=== PATIENT | female | born 1970 | race African-American/Black ===

== ENCOUNTER 2016-10-20 18:20 | Emergency (ER) | payer MEDICAID ==
[2016-06-08 12:05] VITALS: BMI 24.6
[~2016-10-20 18:20] MED LIST: AMBIEN10 MG PO; ATIVAN2 MG PO; CARAFATE1 G PO; HCTZ25 MG PO; HYDROCODONE-APA1 TAB PO; LISINOPRIL10 MG PO; LOPRESSOR; PEPCID40 MG PO; PERCOCET 10/3251 TA1 PO; PHENERGAN25 M1 PO
[2016-10-20 19:45] LABS: BASOPHILS 0.2 % (0.0-2.0); EOSINOPHILS 0 % (0-7); HEMATOCRIT 39.7 % (36.0-48.0); HEMOGLOBIN 12.8 g/dL (12-16); IMMATURE GRANULOCYTES 0.2 % (0-5); LYMPHOCYTES 20.2 % (15-50); MCH 28.7 pg (26.0-34.0); MCHC 32.2 g/dL (31.0-37.0); MEAN PLATELET VOLUME 9.7 fL (7.4-10.4); MONOCYTES 1.7 % (2-11); NEUTROPHILS 77.7 % (40-80); PLATELET COUNT 269 10x3/uL (130-400); RBC 4.46 10x6/uL (4.00-5.40); WBC 12.2 10x3/uL (4.8-10.8)
[2016-10-20 20:01] LABS: APPEARANCE HAZY (CLEAR); COLOR YELLOW (YELLOW)
[2016-10-20 20:02] LABS: ALBUMIN 4.6 g/dL (3.4-5.0); ANION GAP 19.7 mmol/L (8-16); BILIRUBIN - TOTAL 0.95 mg/dL (0.2-1.3); CARBON DIOXIDE 21.7 mmol/L (21.0-32.0); CREATININE - SERUM 0.9 mg/dL (0.6-1.3); POTASSIUM - SERUM 4.4 mmol/L (3.5-5.1); PROTEIN - SERUM 8.2 g/dL (6.4-8.2)
[2016-10-20 20:02] LABS: BILIRUBIN NEGATIVE (NEGATIVE); GLUCOSE NEGATIVE (NEGATIVE); KETONE LARGE mg/dL (NEGATIVE); LEUKOCYTE ESTERASE NEGATIVE (NEGATIVE); NITRITE NEGATIVE (NEGATIVE); PROTEIN NEGATIVE (NEGATIVE); UROBILINOGEN NORMAL (NORMAL)
== END 2016-10-21 00:40 | disposition home or self-care (01) ==
LOC: D.ER 18:20
PROVIDERS: Family Medicine
DX: R10.9 Unspecified abdominal pain (principal); F41.9 Anxiety disorder, unspecified; K74.60 Unspecified cirrhosis of liver; K21.9 Gastro-esophageal reflux disease without esophagitis; I10 Essential (primary) hypertension

== ENCOUNTER 2016-11-21 21:12 | Emergency (ER) | payer MEDICAID ==
[2016-06-08 12:05] VITALS: BMI 24.6
== END 2016-11-21 22:50 | disposition home or self-care (01) ==
LOC: D.ER 21:12
DX: F41.9 Anxiety disorder, unspecified (principal); F43.20 Adjustment disorder, unspecified; M54.5 Low back pain; M54.30 Sciatica, unspecified side; F17.200 Nicotine dependence, unspecified, uncomplicated; K74.60 Unspecified cirrhosis of liver; K21.9 Gastro-esophageal reflux disease without esophagitis; I10 Essential (primary) hypertension

== ENCOUNTER 2016-11-30 05:43 | Day surgery (SDC) | payer MEDICAID ==
[2016-11-28 12:59] LABS: BASOPHILS 0.4 % (0-2); EOSINOPHILS 1.5 % (0-7); HEMATOCRIT 41.5 % (36.0-48.0); HEMOGLOBIN 13.1 g/dL (12-16); IMMATURE GRANULOCYTES 0.2 % (0-5); LYMPHOCYTES 38.4 % (15-50); MCH 28.5 pg (26.0-34.0); MCHC 31.6 g/dL (31.0-37.0); MCV 90.2 fL (80.0-100.0); MEAN PLATELET VOLUME 9.6 fL (7.4-10.4); MONOCYTES 2.9 % (2-11); NEUTROPHILS 56.6 % (40-80); PLATELET COUNT 304 10x3/uL (130-400); RDW 17.8 % (11.5-14.5); WBC 8.5 10x3/uL (4.8-10.8)
[2016-11-28 13:29] LABS: CALC OSMOLALITY 280 mosm/kg (275-300); CALCIUM 9.3 mg/dL (8.5-10.1); CARBON DIOXIDE 30.3 mmol/L (21.0-32.0); CHLORIDE - SERUM 104 mmol/L (98-107); CREATININE - SERUM 0.8 mg/dL (0.6-1.3); GLUCOSE 105 mg/dL (74-106); POTASSIUM - SERUM 3.9 mmol/L (3.5-5.1); SODIUM 142 mmol/L (136-145); UREA NITROGEN 7 mg/dL (7-18); eGFR NON AFRICAN AMERICAN 82 mL/min (90-120)
[~2016-11-30] VITALS: Ht 162.6 cm; Wt 64.9 kg
--- NOTE | ~2016-11-30 | OP ---
PATIENT NAME: ERICA VARMA MEDICAL RECORD: [id number] :70 LOCATION:D.OPS ADMISSION DATE: SURGEON: ADY HOPKINS MD DATE OF OPERATION: 11/30/2016 PREOPERATIVE DIAGNOSES: 1. Persistent low-grade cervical dysplasia. 2. Cervical stenosis POSTOPERATIVE DIAGNOSES: 1. Persistent low-grade cervical dysplasia. 2. Cervical stenosis. PROCEDURE: Loop electrosurgical excision procedure. SURGEON: Ady Hopkins MD ESTIMATED BLOOD LOSS: Minimal. INTRAVENOUS FLUIDS: Per anesthesia record. FINDINGS: 1. Grossly normal appearing cervical stump. 2. Stenotic cervical os. SPECIMENS: Cervical cone biopsy times 2. PROCEDURE IN DETAIL: The patient was taken to the operating room where general anesthesia was achieved without difficulty. The patient was then prepped and draped in normal sterile fashion in the dorsal lithotomy position. SCDs were on and functioning normally. Following prep of the vagina, the bladder was drained of approximately 100 cc of clear urine. At this point, an insulated speculum was placed into the vagina and the cervical stump was identified and then a square loop electrode was used to excise approximately to adapted 8 mm and a cervical cone biopsy was performed in 2 pieces. Good hemostasis was noted and the cervical crater was then fulgurated using the Bovie cautery. The speculum was then removed following a placement of Monsel solution on the cervical stump. The patient tolerated the procedure well, transferred to postanesthesia recovery stable without incident. TRANSINT:[id number] Voice Confirmation ID: [id number] DOCUMENT ID: [id number] ADY HOPKINS MD CC: [id number] DICTATION DATE: 11/30/16 1109 ARCHIVIST: 11/30/162010 [facility] 11/30/16 [facility] [address] [place] [address]
[2016-11-30 06:03] VITALS: BP 137/94; Ht 162.6 cm; Wt 64.9 kg
--- NOTE | 2016-11-30 09:00 | NUR ---
PATIENT REPORTS THAT SHE TAKES PERCOCET MULTIPLE TIMES A DAY AND SUFFERS FROM CHRONIC PAIN.
== END 2016-11-30 09:55 | disposition home or self-care (01) ==
LOC: D.OPS 05:43 → D.PAN 07:30 → D.OPS 09:55
PROVIDERS: Anesthesiology; Obstetrics & Gynecology
DX: N87.9 Dysplasia of cervix uteri, unspecified (principal); F17.200 Nicotine dependence, unspecified, uncomplicated; I10 Essential (primary) hypertension; N88.2 Stricture and stenosis of cervix uteri; Z01.812 Encounter for preprocedural laboratory examination

== ENCOUNTER 2016-12-05 19:53 | Emergency (ER) | payer MEDICAID ==
[2016-11-30 06:03] VITALS: BMI 24.6
[2016-12-05 20:30] LABS: BASOPHILS 0.3 % (0-2); EOSINOPHILS 1.7 % (0-7); HEMATOCRIT 42.3 % (36.0-48.0); HEMOGLOBIN 13.5 g/dL (12-16); IMMATURE GRANULOCYTES 0.2 % (0-5); LYMPHOCYTES 49.9 % (15-50); MCH 28.5 pg (26.0-34.0); MCHC 31.9 g/dL (31.0-37.0); MCV 89.2 fL (80.0-100.0); MONOCYTES 3.7 % (2-11); NEUTROPHILS 44.2 % (40-80); PLATELET COUNT 275 10x3/uL (130-400); RBC 4.74 10x6/uL (4.00-5.40); RDW 18.7 % (11.5-14.5); WBC 10.2 10x3/uL (4.8-10.8)
[2016-12-05 20:55] LABS: ALBUMIN 3.6 g/dL (3.4-5.0); ALKALINE PHOSPHATASE 99 U/L (46-116); ALT (SGPT) 34 U/L (10-68); BILIRUBIN - TOTAL 0.14 mg/dL (0.2-1.3); CALC OSMOLALITY 290 mosm/kg (275-300); CALCIUM 9.2 mg/dL (8.5-10.1); CARBON DIOXIDE 24.8 mmol/L (21.0-32.0); CHLORIDE - SERUM 110 mmol/L (98-107); CREATININE - SERUM 0.7 mg/dL (0.6-1.3); GLUCOSE 109 mg/dL (74-106); POTASSIUM - SERUM 3.9 mmol/L (3.5-5.1); PROTEIN - SERUM 7.2 g/dL (6.4-8.2); SODIUM 147 mmol/L (136-145); UREA NITROGEN 8 mg/dL (7-18); eGFR NON AFRICAN AMERICAN > 90 mL/min (90-120)
[2016-12-05 20:56] LABS: HCG SERUM NEGATIVE (NEGATIVE)
[2016-12-05 21:39] LABS: APPEARANCE CLEAR (CLEAR); COLOR YELLOW (YELLOW)
[2016-12-05 21:40] LABS: BILIRUBIN NEGATIVE (NEGATIVE); GLUCOSE NEGATIVE (NEGATIVE); KETONE NEGATIVE (NEGATIVE); LEUKOCYTE ESTERASE TRACE (NEGATIVE); NITRITE NEGATIVE (NEGATIVE); PROTEIN NEGATIVE (NEGATIVE); UROBILINOGEN NORMAL (NORMAL)
[2016-12-05 21:43] LABS: EPITHELIAL CELLS 0-5 /hpf (0-5); RED CELLS - URINE OCC /hpf (0-5)
[2016-12-05 21:44] LABS: BACTERIA FEW /hpf (NONE SEEN)
== END 2016-12-05 23:39 | disposition home or self-care (01) ==
LOC: D.ER 19:53
PROVIDERS: Emergency Medicine; Physician Assistant
DX: G89.18 Other acute postprocedural pain (principal); N93.8 Other specified abnormal uterine and vaginal bleeding; I95.9 Hypotension, unspecified; F17.200 Nicotine dependence, unspecified, uncomplicated; F41.9 Anxiety disorder, unspecified; K74.60 Unspecified cirrhosis of liver; K21.9 Gastro-esophageal reflux disease without esophagitis; I10 Essential (primary) hypertension

== ENCOUNTER 2016-12-14 17:28 | Emergency (ER) | payer MEDICAID ==
[2016-11-30 06:03] VITALS: BMI 24.6
[2016-12-14 19:29] LABS: APPEARANCE CLEAR (CLEAR); BILIRUBIN NEGATIVE (NEGATIVE); COLOR STRAW (YELLOW); GLUCOSE NEGATIVE (NEGATIVE); KETONE NEGATIVE (NEGATIVE); LEUKOCYTE ESTERASE NEGATIVE (NEGATIVE); NITRITE NEGATIVE (NEGATIVE); PROTEIN NEGATIVE (NEGATIVE); UROBILINOGEN NORMAL (NORMAL)
[2016-12-14 19:30] LABS: UDS - AMPHET NEGATIVE QUAL (NEGATIVE); UDS - BARB NEGATIVE QUAL (NEGATIVE); UDS - BENZO NEGATIVE QUAL (NEGATIVE); UDS - COCAINE NEGATIVE QUAL (NEGATIVE); UDS - METH NEGATIVE QUAL (NEGATIVE); UDS - OPIATE NEGATIVE QUAL (NEGATIVE); UDS - PCP NEGATIVE QUAL (NEGATIVE); UDS - THC NEGATIVE QUAL (NEGATIVE)
[2016-12-14 19:46] LABS: BASOPHILS 0.7 % (0-2); EOSINOPHILS 1.2 % (0-7); HEMATOCRIT 41.8 % (36.0-48.0); HEMOGLOBIN 13.2 g/dL (12-16); IMMATURE GRANULOCYTES 0.5 % (0-5); LYMPHOCYTES 46.4 % (15-50); MCH 28.3 pg (26.0-34.0); MCHC 31.6 g/dL (31.0-37.0); MCV 89.7 fL (80.0-100.0); MEAN PLATELET VOLUME 9.8 fL (7.4-10.4); MONOCYTES 3.9 % (2-11); NEUTROPHILS 47.3 % (40-80); PLATELET COUNT 324 10x3/uL (130-400); RBC 4.66 10x6/uL (4.00-5.40); RDW 18.9 % (11.5-14.5); WBC 12.1 10x3/uL (4.8-10.8)
[2016-12-14 20:10] LABS: ALBUMIN 3.6 g/dL (3.4-5.0); ALKALINE PHOSPHATASE 91 U/L (46-116); ALT (SGPT) 20 U/L (10-68); AMYLASE - SERUM 17 U/L (25-115); BILIRUBIN - TOTAL 0.13 mg/dL (0.2-1.3); CALC OSMOLALITY 291 mosm/kg (275-300); CALCIUM 8.7 mg/dL (8.5-10.1); CARBON DIOXIDE 28.8 mmol/L (21.0-32.0); CHLORIDE - SERUM 111 mmol/L (98-107); CKMB 0.4 U/L (0.0-3.6); CREATINE KINASE 96 UL (21-215); CREATININE - SERUM 0.8 mg/dL (0.6-1.3); GLUCOSE 90 mg/dL (74-106); LIPASE 100 U/L (73-393); MAGNESIUM - SERUM 2.1 mg/dL (1.8-2.4); POTASSIUM - SERUM 3.9 mmol/L (3.5-5.1); PROTEIN - SERUM 7.4 g/dL (6.4-8.2); SODIUM 147 mmol/L (136-145); UREA NITROGEN 12 mg/dL (7-18); eGFR NON AFRICAN AMERICAN 82 mL/min (90-120)
[2016-12-14 20:11] LABS: TROPONIN-I < 0.017 ng/mL (0.000-0.060)
== END 2016-12-15 00:30 | disposition home or self-care (01) ==
LOC: D.ER 17:28
PROVIDERS: Emergency Medicine; Nurse Practitioner Family
DX: F10.129 Alcohol abuse with intoxication, unspecified (principal); F41.9 Anxiety disorder, unspecified; R07.9 Chest pain, unspecified; R11.0 Nausea

== ENCOUNTER 2016-12-24 15:36 | Emergency (ER) | payer MEDICAID ==
[2016-11-30 06:03] VITALS: BMI 24.6
[2016-12-24 16:48] LABS: HEMATOCRIT 41.5 % (36.0-48.0); HEMOGLOBIN 13.4 g/dL (12-16); MCHC 32.3 g/dL (31.0-37.0); MCV 86.6 fL (80.0-100.0); MEAN PLATELET VOLUME 9.8 fL (7.4-10.4); PLATELET COUNT 290 10x3/uL (130-400); RBC 4.79 10x6/uL (4.00-5.40)
[2016-12-24 17:17] LABS: BASOPHILS 1 % (0-2); EOSINOPHILS 3 % (0-7); LYMPHOCYTES 59 % (15-50); MONOCYTES 1 % (2-11); NEUTROPHILS 36 % (40-80); PLATELET ESTIMATE NORMAL; TARGET CELLS OCC
[2016-12-24 17:26] LABS: ALBUMIN 3.9 g/dL (3.4-5.0); ALKALINE PHOSPHATASE 84 U/L (46-116); ALT (SGPT) 19 U/L (10-68); AMYLASE - SERUM 29 U/L (25-115); BILIRUBIN - TOTAL 0.11 mg/dL (0.2-1.3); CALC OSMOLALITY 292 mosm/kg (275-300); CALCIUM 8.8 mg/dL (8.5-10.1); CHLORIDE - SERUM 111 mmol/L (98-107); CREATININE - SERUM 0.6 mg/dL (0.6-1.3); GLUCOSE 91 mg/dL (74-106); LIPASE 183 U/L (73-393); POTASSIUM - SERUM 3.9 mmol/L (3.5-5.1); PROTEIN - SERUM 7.5 g/dL (6.4-8.2); SODIUM 147 mmol/L (136-145); UREA NITROGEN 15 mg/dL (7-18); eGFR NON AFRICAN AMERICAN > 90 mL/min (90-120)
== END 2016-12-24 19:23 | disposition home or self-care (01) ==
LOC: D.ER 15:36
PROVIDERS: Emergency Medicine; Nurse Practitioner Family
DX: K29.00 Acute gastritis without bleeding (principal); F41.9 Anxiety disorder, unspecified; K21.9 Gastro-esophageal reflux disease without esophagitis; I10 Essential (primary) hypertension; F17.200 Nicotine dependence, unspecified, uncomplicated

== ENCOUNTER 2017-03-02 09:59 | Emergency (ER) | payer MEDICAID ==
[2016-11-30 06:03] VITALS: BMI 24.6
[2017-03-02 10:54] LABS: BASOPHILS 0.5 % (0-2); EOSINOPHILS 0.9 % (0-7); HEMATOCRIT 40.8 % (36.0-48.0); HEMOGLOBIN 13.2 g/dL (12-16); IMMATURE GRANULOCYTES 0.2 % (0-5); LYMPHOCYTES 57.3 % (15-50); MCH 28.9 pg (26.0-34.0); MCHC 32.4 g/dL (31.0-37.0); MCV 89.3 fL (80.0-100.0); MEAN PLATELET VOLUME 10.1 fL (7.4-10.4); MONOCYTES 3.8 % (2-11); NEUTROPHILS 37.3 % (40-80); PLATELET COUNT 318 10x3/uL (130-400); RBC 4.57 10x6/uL (4.00-5.40); RDW 20.3 % (11.5-14.5); WBC 8.7 10x3/uL (4.8-10.8)
[2017-03-02 11:19] LABS: ALBUMIN 3.8 g/dL (3.4-5.0); ALKALINE PHOSPHATASE 78 U/L (46-116); ALT (SGPT) 26 U/L (10-68); CALC OSMOLALITY 291 mosm/kg (275-300); CALCIUM 8.7 mg/dL (8.5-10.1); CHLORIDE - SERUM 109 mmol/L (98-107); CREATININE - SERUM 0.6 mg/dL (0.6-1.3); GLUCOSE 98 mg/dL (74-106); POTASSIUM - SERUM 3.7 mmol/L (3.5-5.1); PROTEIN - SERUM 7.3 g/dL (6.4-8.2); SODIUM 147 mmol/L (136-145); UREA NITROGEN 13 mg/dL (7-18); eGFR NON AFRICAN AMERICAN > 90 mL/min (90-120)
[2017-03-02 11:44] LABS: APPEARANCE HAZY (CLEAR); BILIRUBIN NEGATIVE (NEGATIVE); COLOR YELLOW (YELLOW); GLUCOSE NEGATIVE (NEGATIVE); KETONE NEGATIVE (NEGATIVE); LEUKOCYTE ESTERASE NEGATIVE (NEGATIVE); NITRITE NEGATIVE (NEGATIVE); PROTEIN NEGATIVE (NEGATIVE); UROBILINOGEN NORMAL (NORMAL)
[2017-03-02 11:59] LABS: UDS - AMPHET NEGATIVE QUAL (NEGATIVE); UDS - BARB NEGATIVE QUAL (NEGATIVE); UDS - BENZO NEGATIVE QUAL (NEGATIVE); UDS - COCAINE NEGATIVE QUAL (NEGATIVE); UDS - METH NEGATIVE QUAL (NEGATIVE); UDS - OPIATE NEGATIVE QUAL (NEGATIVE); UDS - PCP NEGATIVE QUAL (NEGATIVE); UDS - THC NEGATIVE QUAL (NEGATIVE)
== END 2017-03-02 12:53 | disposition home or self-care (01) ==
LOC: D.ER 09:59
PROVIDERS: Nurse Practitioner Family
DX: F10.129 Alcohol abuse with intoxication, unspecified (principal); W06.XXXA Fall from bed, initial encounter; Y93.89 Activity, other specified; Y92.89 Other specified places as the place of occurrence of the external cause; K74.60 Unspecified cirrhosis of liver; F41.9 Anxiety disorder, unspecified; K21.9 Gastro-esophageal reflux disease without esophagitis; I10 Essential (primary) hypertension; F17.200 Nicotine dependence, unspecified, uncomplicated

== ENCOUNTER 2017-04-25 18:12 | Emergency (ER) | payer MEDICAID ==
[2016-11-30 06:03] VITALS: BMI 24.6
== END 2017-04-25 21:44 | disposition home or self-care (01) ==
LOC: D.ER 18:12
DX: F10.129 Alcohol abuse with intoxication, unspecified (principal); F10.10 Alcohol abuse, uncomplicated; F17.200 Nicotine dependence, unspecified, uncomplicated

== ENCOUNTER 2017-04-30 16:04 | Emergency (ER) | payer MEDICAID ==
[2016-11-30 06:03] VITALS: BMI 24.6
[2017-04-30 16:43] LABS: BASOPHILS 0.2 % (0-2); EOSINOPHILS 0.1 % (0-7); HEMATOCRIT 46.7 % (36.0-48.0); HEMOGLOBIN 15.4 g/dL (12-16); IMMATURE GRANULOCYTES 0.4 % (0-5); LYMPHOCYTES 28.4 % (15-50); MCH 29.8 pg (26.0-34.0); MCV 90.5 fL (80.0-100.0); NEUTROPHILS 68.9 % (40-80); PLATELET COUNT 312 10x3/uL (130-400); RBC 5.16 10x6/uL (4.00-5.40); WBC 16.8 10x3/uL (4.8-10.8)
[2017-04-30 17:07] LABS: ALBUMIN 4.3 g/dL (3.4-5.0); ANION GAP 27.8 mmol/L (8-16); BILIRUBIN - TOTAL 0.3 mg/dL (0.2-1.3); CALCIUM 8.8 mg/dL (8.5-10.1); CARBON DIOXIDE 13.8 mmol/L (21.0-32.0); CREATININE - SERUM 0.9 mg/dL (0.6-1.3); POTASSIUM - SERUM 3.6 mmol/L (3.5-5.1); PROTEIN - SERUM 7.8 g/dL (6.4-8.2)
[2017-04-30 17:36] LABS: APPEARANCE CLEAR (CLEAR); BILIRUBIN NEGATIVE (NEGATIVE); COLOR YELLOW (YELLOW); GLUCOSE NEGATIVE (NEGATIVE); KETONE MODERATE mg/dL (NEGATIVE); NITRITE NEGATIVE (NEGATIVE); PROTEIN TRACE mg/dL (NEGATIVE); UROBILINOGEN NORMAL (NORMAL)
== END 2017-04-30 20:32 | disposition home or self-care (01) ==
LOC: D.ER 16:04
PROVIDERS: Emergency Medicine
DX: K29.20 Alcoholic gastritis without bleeding (principal); I10 Essential (primary) hypertension; K21.9 Gastro-esophageal reflux disease without esophagitis; F17.200 Nicotine dependence, unspecified, uncomplicated

== ENCOUNTER 2017-07-15 04:10 | Emergency (ER) | payer MEDICAID ==
[2016-11-30 06:03] VITALS: BMI 24.6
[2017-07-15 05:27] LABS: BASOPHILS 0.5 % (0-2); EOSINOPHILS 0.6 % (0-7); HEMATOCRIT 38.9 % (36.0-48.0); HEMOGLOBIN 12.9 g/dL (12-16); IMMATURE GRANULOCYTES 0.3 % (0-5); LYMPHOCYTES 37.8 % (15-50); MCH 29.9 pg (26.0-34.0); MCHC 33.2 g/dL (31.0-37.0); MEAN PLATELET VOLUME 9.9 fL (7.4-10.4); MONOCYTES 4.1 % (2-11); NEUTROPHILS 56.7 % (40-80); PLATELET COUNT 322 10x3/uL (130-400); RBC 4.32 10x6/uL (4.00-5.40); RDW 17.9 % (11.5-14.5); WBC 12.6 10x3/uL (4.8-10.8)
[2017-07-15 05:40] LABS: ALBUMIN 3.7 g/dL (3.4-5.0); ALKALINE PHOSPHATASE 84 U/L (46-116); ALT (SGPT) 28 U/L (10-68); AMYLASE - SERUM 17 U/L (25-115); BILIRUBIN - TOTAL 0.32 mg/dL (0.2-1.3); CALCIUM 7.9 mg/dL (8.5-10.1); CHLORIDE - SERUM 100 mmol/L (98-107); CREATININE - SERUM 0.6 mg/dL (0.6-1.3); LIPASE 149 U/L (73-393); POTASSIUM - SERUM 3.9 mmol/L (3.5-5.1); PROTEIN - SERUM 7.5 g/dL (6.4-8.2); SODIUM 136 mmol/L (136-145); UREA NITROGEN 21 mg/dL (7-18); eGFR NON AFRICAN AMERICAN > 90 mL/min (90-120)
[2017-07-15 05:42] LABS: CALC OSMOLALITY 276 mosm/kg (275-300); GLUCOSE 142 mg/dL (74-106)
[2017-07-15 06:45] LABS: APPEARANCE CLEAR (CLEAR); BILIRUBIN NEGATIVE (NEGATIVE); COLOR YELLOW (YELLOW); GLUCOSE NEGATIVE (NEGATIVE); KETONE MODERATE mg/dL (NEGATIVE); NITRITE NEGATIVE (NEGATIVE); PROTEIN NEGATIVE (NEGATIVE); SPECIFIC GRAVITY 1.015 (1.005-1.020); UROBILINOGEN NORMAL (NORMAL)
== END 2017-07-15 08:10 | disposition home or self-care (01) ==
LOC: D.ER 04:10
PROVIDERS: Family Medicine
DX: K29.70 Gastritis, unspecified, without bleeding (principal); K92.2 Gastrointestinal hemorrhage, unspecified; F10.10 Alcohol abuse, uncomplicated; J20.9 Acute bronchitis, unspecified; I10 Essential (primary) hypertension; K21.9 Gastro-esophageal reflux disease without esophagitis

== ENCOUNTER 2017-08-27 09:32 | Day surgery (SDC) | payer MEDICAID ==
[~2017-08-27] VITALS: Ht 162.6 cm; Wt 63.6 kg
--- NOTE | ~2017-08-27 | OP ---
PATIENT NAME: ERICA VARMA MEDICAL RECORD: [id number] :70 LOCATION:[facility] ADMISSION DATE: SURGEON: GEOVANY YAN DO DATE OF OPERATION: 08/27/2017 PROCEDURE: EGD with biopsies. INDICATIONS FOR PROCEDURE: Dysphagia, heartburn, nausea, epigastric abdominal pain. SCOPE: Olympus video gastroscope. MEDICATIONS: Propofol 270 mg IV per anesthesia. ESTIMATED BLOOD LOSS: Minimal. COMPLICATIONS: None. FINDINGS: Informed consent was given. The patient was made comfortable with the above medication. After reaching an adequate level of sedation by slow IV push, the patient was placed on her left side. The endoscope was advanced under direct visualization through the mouth to the second portion of the duodenum. The upper, middle, and lower thirds of the esophagus appeared normal. At the GE junction, there was evidence of LA class A reflux induced esophagitis without ulcerations. There were no strictures or rings encountered within the esophagus itself. A single cold forceps biopsy was taken from the site of the esophagitis. The endoscope was advanced into the stomach and retroflexed to view the cardia and fundus. From the retroflexed position, there was small sliding hiatal hernia visualized. Throughout the entire stomach, there was some erythema and granularity as well as congestion consistent with gastritis. Random biopsies were taken to submit for histopathology and to rule out H pylori. In the antrum and prepyloric region, there were few superficial ulcerations present. The endoscope was advanced beyond the pylorus into the duodenum where inflammation consisting of congestion, erythema, and granularity of the duodenal bulb was present. There were no ulcerations visualized here. The endoscope was advanced beyond the bulb and first portion of the duodenum into the second portion, which appeared normal. The endoscope was then withdrawn from the patient. The patient tolerated the procedure well and there were no complications. IMPRESSION: 1. LA class A reflux-induced esophagitis. 2. Small sliding hiatal hernia. 3. Diffuse gastritis, biopsies pending. 4. Multiple superficial antral and prepyloric gastric ulcers. 5. Duodenitis involving the duodenal bulb. PLAN AND RECOMMENDATIONS: 1. Discharge home when recovery parameters are met. 2. GERD diet and reflux precautions. 3. Start Protonix 40 mg daily times 60 days. 4. Follow up biopsy specimen results and treat if indicated for H pylori. 5. At the completion of the course of Protonix, resume Pepcid or Zantac for antacid therapy. 6. Notify the clinic if symptoms failed to improve with the Protonix. OPERATIVE REPORT [id number] ERICA VARMA TRANSINT:[id number] Voice Confirmation ID: [id number] DOCUMENT ID: [id number] GEOVANY YAN DO CC: [id number] DICTATION DATE: 08/27/17 1128 AIR CONDITIONING TECHNICIAN: 08/27/17 1311 [facility] 08/27/[address] [address]
[2017-08-27 10:12] LABS: BASOPHILS 0.5 % (0-2); EOSINOPHILS 0.9 % (0-7); HEMATOCRIT 39.6 % (36.0-48.0); HEMOGLOBIN 12.4 g/dL (12-16); IMMATURE GRANULOCYTES 0.2 % (0-5); LYMPHOCYTES 39.2 % (15-50); MCH 28.4 pg (26.0-34.0); MCHC 31.3 g/dL (31.0-37.0); MCV 90.8 fL (80.0-100.0); MEAN PLATELET VOLUME 10.1 fL (7.4-10.4); MONOCYTES 4.9 % (2-11); NEUTROPHILS 54.3 % (40-80); PLATELET COUNT 330 10x3/uL (130-400); RBC 4.36 10x6/uL (4.00-5.40); RDW 18.8 % (11.5-14.5); WBC 12.2 10x3/uL (4.8-10.8)
[2017-08-27 10:23] VITALS: BP 112/77; Ht 162.6 cm; Wt 63.6 kg
== END 2017-08-27 12:25 | disposition home or self-care (01) ==
LOC: D.OPS 09:32
PROVIDERS: Anesthesiology
DX: K21.0 Gastro-esophageal reflux disease with esophagitis (principal); K44.9 Diaphragmatic hernia without obstruction or gangrene; K29.70 Gastritis, unspecified, without bleeding; K25.9 Gastric ulcer, unspecified as acute or chronic, without hemorrhage or perforation; K29.80 Duodenitis without bleeding; Z01.812 Encounter for preprocedural laboratory examination

== ENCOUNTER 2017-09-13 19:55 | Emergency (ER) | payer MEDICAID ==
[2017-08-27 10:23] VITALS: BMI 24.0
[2017-09-13 20:33] LABS: UDS - AMPHET NEGATIVE QUAL (NEGATIVE); UDS - BENZO NEGATIVE QUAL (NEGATIVE); UDS - COCAINE NEGATIVE QUAL (NEGATIVE); UDS - PCP NEGATIVE QUAL (NEGATIVE); UDS - THC NEGATIVE QUAL (NEGATIVE)
[2017-09-13 20:34] LABS: UDS - BARB NEGATIVE QUAL (NEGATIVE); UDS - OPIATE NEGATIVE QUAL (NEGATIVE)
[2017-09-13 20:52] LABS: HEMATOCRIT 43.1 % (36.0-48.0); HEMOGLOBIN 14.1 g/dL (12-16); MCH 28.5 pg (26.0-34.0); MCHC 32.7 g/dL (31.0-37.0); MCV 87.1 fL (80.0-100.0); MEAN PLATELET VOLUME 9.9 fL (7.4-10.4); PLATELET COUNT 333 10x3/uL (130-400); RBC 4.95 10x6/uL (4.00-5.40); WBC 16.4 10x3/uL (4.8-10.8)
[2017-09-13 21:18] LABS: ALBUMIN 4.3 g/dL (3.4-5.0); BILIRUBIN - TOTAL 0.2 mg/dL (0.2-1.3); CALCIUM 8.4 mg/dL (8.5-10.1); CARBON DIOXIDE 22.8 mmol/L (21.0-32.0); CREATININE - SERUM 0.9 mg/dL (0.6-1.3); POTASSIUM - SERUM 3.8 mmol/L (3.5-5.1); PROTEIN - SERUM 8.3 g/dL (6.4-8.2)
[2017-09-13 21:34] LABS: APPEARANCE CLEAR (CLEAR); BILIRUBIN NEGATIVE (NEGATIVE); COLOR STRAW (YELLOW); GLUCOSE NEGATIVE (NEGATIVE); KETONE NEGATIVE (NEGATIVE); NITRITE NEGATIVE (NEGATIVE); PROTEIN NEGATIVE (NEGATIVE); UROBILINOGEN NORMAL (NORMAL)
[2017-09-13 21:40] LABS: LYMPHOCYTES 53 % (15-50); NEUTROPHILS 47 % (40-80)
[2017-09-13 21:41] LABS: ELLIPTOCYTES OCC; PLATELET ESTIMATE NORMAL; ROULEAUX OCC
[2017-09-13 21:42] LABS: TARGET CELLS OCC
[2017-09-14 04:36] LABS: BASOPHILS 0.4 % (0-2); EOSINOPHILS 0.5 % (0-7); HEMATOCRIT 39.5 % (36.0-48.0); HEMOGLOBIN 12.3 g/dL (12-16); IMMATURE GRANULOCYTES 0.2 % (0-5); LYMPHOCYTES 55.5 % (15-50); MCH 27.7 pg (26.0-34.0); MCHC 31.1 g/dL (31.0-37.0); MEAN PLATELET VOLUME 10.1 fL (7.4-10.4); MONOCYTES 2.6 % (2-11); NEUTROPHILS 40.8 % (40-80); PLATELET COUNT 280 10x3/uL (130-400); RBC 4.44 10x6/uL (4.00-5.40); RDW 18.8 % (11.5-14.5); WBC 13.3 10x3/uL (4.8-10.8)
== END 2017-09-14 05:32 | disposition home or self-care (01) ==
LOC: D.ER 19:55
PROVIDERS: Emergency Medicine
DX: Z86.59 Personal history of other mental and behavioral disorders (principal); F17.200 Nicotine dependence, unspecified, uncomplicated; F12.90 Cannabis use, unspecified, uncomplicated; F11.90 Opioid use, unspecified, uncomplicated; I10 Essential (primary) hypertension; K21.9 Gastro-esophageal reflux disease without esophagitis

== ENCOUNTER 2017-10-15 19:10 | Emergency (ER) | payer MEDICAID ==
[2017-08-27 10:23] VITALS: BMI 24.0
== END 2017-10-15 21:09 | disposition home or self-care (01) ==
LOC: D.ER 19:10
DX: M54.6 Pain in thoracic spine (principal); S29.012A Strain of muscle and tendon of back wall of thorax, initial encounter; X58.XXXA Exposure to other specified factors, initial encounter; Y93.89 Activity, other specified; Y92.89 Other specified places as the place of occurrence of the external cause; I10 Essential (primary) hypertension

== ENCOUNTER 2018-04-14 13:06 | Emergency (ER) | payer MEDICAID ==
[~2018-04-14] VITALS: Ht 162.6 cm; Wt 61.4 kg
[2018-04-14 13:13] VITALS: Ht 162.6 cm; Wt 61.4 kg
[2018-04-14] MEDS ORDERED: CREON DR 6,0001 EACH PO (13:15)
[2018-04-14] MEDS ORDERED: PROVENTIL/2.5 MG/3 M (13:16)
[2018-04-14] MEDS ORDERED: AZOR 10-20 MG T1 TAB PO (13:16)
[2018-04-14 16:17] VITALS: BP 140/89
== END 2018-04-14 16:18 | disposition home or self-care (01) ==
LOC: D.ER 13:06
DX: M79.671 Pain in right foot (principal); R51 Headache; R07.81 Pleurodynia; Y04.2XXA Assault by strike against or bumped into by another person, initial encounter; Y93.89 Activity, other specified; Y92.019 Unspecified place in single-family (private) house as the place of occurrence of the external cause; I10 Essential (primary) hypertension; F17.200 Nicotine dependence, unspecified, uncomplicated

== ENCOUNTER 2018-04-19 20:49 | Emergency (ER) | payer MEDICAID ==
[~2018-04-19] VITALS: Ht 162.6 cm; Wt 81.8 kg
[~2018-04-19 20:49] MED LIST changes: +AZOR 10-20 MG T1 TAB PO; +CREON DR 6,0001 EACH PO; +PROVENTIL/2.5 MG/3 M
[2018-04-19 20:53] VITALS: Ht 162.6 cm; Wt 81.8 kg
[2018-04-19 21:30] LABS: HEMATOCRIT 40.5 % (36.0-48.0); HEMOGLOBIN 13.5 g/dL (12-16); MCH 28.7 pg (26.0-34.0); MCHC 33.3 g/dL (31.0-37.0); MCV 86.2 fL (80.0-100.0); MEAN PLATELET VOLUME 9.7 fL (7.4-10.4); PLATELET COUNT 281 10x3/uL (130-400); RDW 18.8 % (11.5-14.5); WBC 13.9 10x3/uL (4.8-10.8)
[2018-04-19 21:47] LABS: APTT 26.7 SECONDS (22.8-39.4); INR 0.95 (0.85-1.17); PROTIME 12.3 SECONDS (11.6-15.0)
[2018-04-19 22:03] LABS: ALKALINE PHOSPHATASE 73 U/L (46-116); ALT (SGPT) 19 U/L (10-68); BILIRUBIN - TOTAL 0.18 mg/dL (0.2-1.3); CALC OSMOLALITY 279 mosm/kg (275-300); CALCIUM 9.2 mg/dL (8.5-10.1); CARBON DIOXIDE 25.1 mmol/L (21.0-32.0); CHLORIDE - SERUM 104 mmol/L (98-107); CKMB 0.2 U/L (0.0-3.6); CREATINE KINASE 77 UL (21-215); CREATININE - SERUM 0.7 mg/dL (0.6-1.3); GLUCOSE 114 mg/dL (74-106); PRO BNP 13 pg/mL (0-125); PROTEIN - SERUM 7.9 g/dL (6.4-8.2); SODIUM 140 mmol/L (136-145); UREA NITROGEN 12 mg/dL (7-18); eGFR NON AFRICAN AMERICAN > 90 mL/min (90-120)
[2018-04-19 22:11] LABS: POTASSIUM - SERUM 2.8 mmol/L (3.5-5.1); TROPONIN-I < 0.017 ng/mL (0.000-0.060)
[2018-04-19 22:13] LABS: ELLIPTOCYTES OCC; EOSINOPHILS 1 % (0-7); LYMPHOCYTES 53 % (15-50); MONOCYTES 1 % (2-11); NEUTROPHILS 45 % (40-80); PLATELET ESTIMATE NORMAL; TARGET CELLS OCC
[2018-04-19] MEDS ORDERED: VIBRAMYCIN 100100 MG PO (22:41)
[2018-04-19] MEDS ORDERED: VENTOLIN HFA18 GM INH (22:41)
[2018-04-19 23:02] VITALS: BP 128/48
== END 2018-04-19 23:02 | disposition home or self-care (01) ==
LOC: D.ER 20:49
PROVIDERS: Family Medicine
DX: J42 Unspecified chronic bronchitis (principal); R05 Cough; E87.6 Hypokalemia; K86.1 Other chronic pancreatitis; I10 Essential (primary) hypertension; F17.200 Nicotine dependence, unspecified, uncomplicated

== ENCOUNTER → 2018-05-16 10:12 | Outpatient (CLI) | payer MEDICAID ==
[2018-04-19 20:53] VITALS: BMI 30.9
--- NOTE | ~2018-05-16 | ST ---
PATIENT:ERICA VARMA [facility] MEDICAL RECORD: [id number] SEX: F LOCATION:[facility] ORDER #: ADMISSION DATE: 05/16/18 AGE OF PATIENT: 48 REFERRING PHYSICIAN: INTERPRETING PHYSICIAN: YOHAN DANIELLE MD DATE OF SERVICE: 05/16/2018 PROCEDURE: Nuclear stress test. INDICATION: Chest pain of unknown etiology. PROCEDURE: The patient was exercised on standard Lexiscan protocol with 30.5 mCi of sestamibi injected at peak stress. Rest images were done previously with 12.8 mCi. FINDINGS: Gated SPECT reveals a preserved ejection fraction at greater than 70% with good wall motion and thickening and brightening throughout all segments. SPECT imaging: Sestamibi was used as a myocardial perfusion agent. There is homogeneous uptake throughout all segments at rest and stress with no evidence of inducible ischemia or previous infarction. OVERALL IMPRESSION: 1. This is a normal nuclear stress test with no evidence of inducible ischemia or previous infarction. 2. Gated SPECT reveals preserved ejection fraction greater than 70%. In this patient with ongoing symptomatology, the current scan does not suggest the presence of hemodynamically significant coronary artery disease. We would evaluate noncardiac etiology of chest pain. TRANSINT:[id number] Voice Confirmation ID: [id number] DOCUMENT ID: [id number] YOHAN DANIELLE MD at 1903 CC: [id number] DICTATION DATE: 05/17/18 1138 MEDICAL CLAIMS MANAGER: 05/17/18 2307 DEP CLI 05/16/18 [address] [place] [address]
[~2018-05-16 10:12] MED LIST changes: +VENTOLIN HFA18 GM INH; +VIBRAMYCIN 100100 MG PO
== END | disposition home or self-care (01) ==
LOC: D.NM 10:12
DX: I20.9 Angina pectoris, unspecified (principal); R06.00 Dyspnea, unspecified

== ENCOUNTER → 2018-07-02 12:31 | Outpatient (CLI) | payer MEDICAID ==
[2018-04-19 20:53] VITALS: BMI 30.9
== END | disposition home or self-care (01) ==
LOC: D.CT 06-27 11:30
DX: G89.29 Other chronic pain (principal)

== ENCOUNTER 2018-07-22 08:00 | Outpatient (CLI) | payer MEDICAID ==
[2018-04-19 20:53] VITALS: BMI 30.9
== END 2018-07-22 09:00 | disposition home or self-care (01) ==
LOC: D.MAMMO 08:00
DX: Z12.31 Encounter for screening mammogram for malignant neoplasm of breast (principal)

== ENCOUNTER 2018-10-21 12:00 | Outpatient (CLI) | payer MEDICAID ==
[2018-04-19 20:53] VITALS: BMI 30.9
== END 2018-10-21 13:00 | disposition home or self-care (01) ==
LOC: D.MAMMO 12:00
PROVIDERS: ATTEND Emergency Medicine
DX: R92.8 Other abnormal and inconclusive findings on diagnostic imaging of breast (principal)

== ENCOUNTER → 2019-09-25 12:10 | Outpatient (CLI) | payer OTHER ==
[2018-04-19 20:53] VITALS: BMI 30.9
== END | disposition home or self-care (01) ==
LOC: D.CT 12:10
PROVIDERS: ATTEND Internal Medicine Gastroenterology
DX: N28.89 Other specified disorders of kidney and ureter (principal); R93.89 Abnormal findings on diagnostic imaging of other specified body structures

== ENCOUNTER 2019-11-29 20:36 | Emergency (ER) | payer OTHER ==
[~2019-11-29] VITALS: Ht 162.6 cm; Wt 59.1 kg
[2019-11-29 20:48] VITALS: Ht 162.6 cm; Wt 59.1 kg
[2019-11-29 21:06] LABS: HEMATOCRIT 44.8 % (36.0-48.0); HEMOGLOBIN 14.3 g/dL (12-16); LYMPHOCYTES 37.4 % (15-50); MCH 28.3 pg (26.0-34.0); MCHC 31.9 g/dL (31.0-37.0); MCV 88.5 fL (80.0-100.0); MEAN PLATELET VOLUME 9.5 fL (7.4-10.4); NEUTROPHILS 59.6 % (40-80); PLATELET COUNT 335 10x3/uL (130-400); RBC 5.06 10x6/uL (4.00-5.40); RDW 16.7 % (11.5-14.5); WBC 13.6 10x3/uL (4.8-10.8)
[2019-11-29 21:21] LABS: CALC OSMOLALITY 274 mosm/kg (275-300); CALCIUM 8.9 mg/dL (8.5-10.1); CARBON DIOXIDE 19.4 mmol/L (21.0-32.0); CHLORIDE - SERUM 97 mmol/L (98-107); CREATININE - SERUM 0.9 mg/dL (0.6-1.3); GLUCOSE 79 mg/dL (74-106); POTASSIUM - SERUM 3.6 mmol/L (3.5-5.1); SODIUM 136 mmol/L (136-145); UREA NITROGEN 24 mg/dL (7-18); eGFR NON AFRICAN AMERICAN 70 mL/min (90-120)
[2019-11-29 21:32] LABS: ALBUMIN 4.4 g/dL (3.4-5.0); ALKALINE PHOSPHATASE 89 U/L (30-120); ALT (SGPT) 23 U/L (10-68); AMYLASE - SERUM 17 U/L (25-115); BILIRUBIN - TOTAL 0.55 mg/dL (0.2-1.3); LIPASE 81 U/L (73-393); PROTEIN - SERUM 8.5 g/dL (6.4-8.2)
[2019-11-29 21:35] LABS: TROPONIN-I < 0.017 ng/mL (0.000-0.060)
[2019-11-29] MEDS ORDERED: ZOFRAN8 MG PO (22:36)
[2019-11-29] MEDS ORDERED: FLAGYL500 MG PO (22:36)
[2019-11-29] MEDS ORDERED: CIPRO500 MG PO (22:36)
[2019-11-29 22:40] LABS: BILIRUBIN NEGATIVE (NEGATIVE); GLUCOSE NEGATIVE (NEGATIVE); KETONE MODERATE mg/dL (NEGATIVE); NITRITE NEGATIVE (NEGATIVE); SPECIFIC GRAVITY 1.015 (1.005-1.020); UROBILINOGEN NORMAL (NORMAL)
[2019-11-29 23:16] VITALS: BP 144/96
== END 2019-11-29 23:17 | disposition home or self-care (01) ==
LOC: D.ER 20:36
PROVIDERS: Surgery
DX: K29.20 Alcoholic gastritis without bleeding (principal); I10 Essential (primary) hypertension; Z99.81 Dependence on supplemental oxygen; Z72.0 Tobacco use; K21.9 Gastro-esophageal reflux disease without esophagitis; R19.7 Diarrhea, unspecified; R10.9 Unspecified abdominal pain

== ENCOUNTER 2020-10-05 11:57 | Day surgery (SDC) | payer OTHER ==
[~2020-10-05] VITALS: Ht 162.6 cm; Wt 62.8 kg
--- NOTE | ~2020-10-05 | HEMODYNAMI ---
PATIENT:ERICA VARMA MEDICAL RECORD: [id number] : 70 LOCATION:[facility] ADMISSION DATE: 10/05/20 Generatedon:113:56 Patient name: ERICA VARMA Patient #: [id number] SSN : [id number] : 1970 Date of study: 10/05/2020 Page: Of Hemodynamic Procedure Report Patient Data Patient Demographics Procedure consent was obtained First Name: ERICA Gender: Female Last Name: AVANI : 1970 [facility] Initial: PAYTON Age: 50 year(s) Patient #: [id number] Race: Black SSN: [id number] Additional ID: [id number] Contact details [address]: [address] [place] [address] ROAD State: [place] City: [place] Zip code: [address] Past Medical History Allergies: No known allergies Admission Admission Data Admission Date: 10/05/2020 Admission Time: 11:57 Arrival Date: 10/05/2020 Arrival Time: 0:00 Admit Source: Other Insurance Payor: Private health insurance PSYCHIATRIC #: [id number] Height (in.): 64 BSA: 1.66 (m2) Height (cm.): 162.56 BMI: 23.34 (kg/m2) Weight (lbs.): 136 Weight (kg.): 61.69 Lab Results Lab Result Date: 10/05/2020 Lab Result Time: 0:00 Biochemistry Name Units Result Min Max BUN mg/dl 13 --(--*-)-- 7 18 Creatinine mg/dl 0.9 --(-*--)-- 0.6 1.3 eGFR ml/min 85.01770 -*(----)-- 90 120 AM CBC Name Units Result Min Max Hematocrit % 36 *-(----)-- 42 54 Hemoglobin g/dl 11.2 *-(----)-- 13.5 17.5 Procedure Procedure Types Cath Procedure Diagnostic Procedure [facility] w/Coronaries Sedation Charges Moderate Sedation 10-24 minutes Procedure Description Procedure Date Procedure Date: 10/05/2020 Procedure Start Time: 13:41 Procedure End Time: 13:50 Procedure Staff Name Function Michoacano Majano MD Performing Physician Jessica Bui RT Monitor Yissel Greco RT Scrub Ludwig Snider RN Nurse Indication Dyspnea Chest pain Pulmonary hypertension Procedure Data Cath Procedure Fluoroscopy Diagnostic fluoroscopy Total fluoroscopy Time: 0.8 time: 0.8 min min Diagnostic fluoroscopy Total fluoroscopy dose: 191 dose: 191 mGy mGy Contrast Material Contrast Material Type Amount (ml) Isovue 370 49 Entry Location Entry Primary Successful Side Size Upsize Upsize Entry Closure Succes sful Closure Location (Fr) 1 (Fr) 2 (Fr) Remarks Device Remarks Femoral Right 5 Fr Exoseal artery Estimated blood loss: 5 ml Diagnostic catheters Device Type Used For End Catheter Placement MULTIPACK JL 4.0 5Fr Procedure catheter MULTIPACK 3DRC 5Fr Procedure catheter MULTIPACK Pigtail 5 Fr Procedure catheter Procedure Complications No complications Procedure Medications Medication Administration Route Dosage Oxygen etCO2 Nasal cannula 2 l/min Lidocaine 2% added to field 20 Heparin Flush Bag added to field 2 bags (1000units/500ml NS) 0.9% NaCl I.V. 100 ml/hr Versed I.V. 2 mg Fentanyl I.V. 100 mcg Lopressor I.V. 5 mg Versed I.V. 2 mg Fentanyl I.V. 100 mcg Lopressor I.V. 5 mg Versed I.V. 1 mg Fentanyl I.V. 50 mcg Hemodynamics Rest BSA: 1.66 (m2) HGB: 11.2 (g/dl) O2 Consumption: Estimated: 172.98 (ml/min) O2 Co nsumption indexed: Estimated:104.2 (ml/min/m) Heart Rate: 87 (bpm) Pressure Samples Time Site Value (mmHg) Purpose Heart Use Rate(bpm) 13:46 LV 63/2,-6 Snapshot 80 13:47 AO 207/101(148) Pullback 89 13:47 LV 199/14,15 Pullback 89 Gradients Valve Time Site 1 Site 2 Mean SEP/DFP Peak To Heart Use (mmHg) (sec/min) Peak Rate (mmHg) (bpm) Aortic 13:47 LV AO 0 20 0 89 199/14,15 207/101(148) Calculations Valve P-P Mean Valve Index Valve Source Name Gradient Area Flow (cm2) Aortic 0 0 0 0 Snapshots Pre Cath Intra NCS Post Cath Vital Signs Time Heart Resp SPO2 etCO2 NIBP (mmHg) Rhythm Pain Sedation Rate (ipm) (%) (mmHg) Status Level (bpm) 13:30:48 90 20 98 0 190/123(170) NSR 0 (11) 10(A) , No pain 13:34:58 87 12 96 41.7 158/104(141) NSR 0 (11) 10(A) , No pain 13:39:15 84 13 97 41.7 159/103(135) NSR 0 (11) 10(A) , No pain 13:43:34 84 13 97 42.5 143/102(124) NSR 0 (11) 10(A) , No pain 13:48:57 83 15 95 32.8 202/120(170) NSR 0 (11) 10(A) , No pain 13:53:15 80 19 95 36.5 147/97(131) NSR 0 (11) 10(A) , No pain 13:55:59 79 15 96 48.4 145/94(115) NSR 0 (11) 10(A) , No pain Medications Time Medication Route Dose Verified Delivered Reason Notes Eff ectiveness by by 13:22:51 Oxygen etCO2 2 Michoacano Adilsonie used for Nasal l/min St Sumit Snider event host cannula 13:22:59 Lidocaine 2% added 20ml Michoacano Ríos for local to vial [facility] anesthetic field MD GEORGE 13:23:06 Heparin Flush added 2 Michoacano Michoacano used for Bag to bags [facility] procedure (1000units/500ml field MD GEORGE NS) 13:23:15 0.9% NaCl I.V. 100 Michoacano Munroe Per ml/hr St Sumit Snider RN physician 13:37:40 Versed I.V. 2 mg Michoacano Adilsonie for St Sumit Snider RN sedation 13:37:45 Fentanyl I.V. 100 Michoacano Adilsonie for mcg [facility] Sumit Snider RN sedation 13:41:01 Versed I.V. 2 mg Michoacano Adilsonie for St Sumit Snider RN sedation 13:41:05 Fentanyl I.V. 100 Michoacano De Andaie for mcg [facility] Sumit Snider RN sedation 13:45:01 Lopressor I.V. 5 mg Michoacano Munroe Per [facility] Sumit Snider RN physician 13:47:22 Versed I.V. 1 mg Michoacano Munroe for St Sumit Snider RN sedation 13:47:26 Fentanyl I.V. 50 Michoacano De Andaie for [facility] Sumit Snider RN sedation 13:52:21 Lopressor I.V. 5 mg Michoacano Munroe Per St Sumit Snider RN physician Procedure Log Time Note 12:12:55 Informed consent obtained and on chart 12:13:19 Insurance Payor : Private health insurance 12:13:21 Arrival Date: 10/05/2020 12:00:00 AM 12:13:22 Admit Source: Other 12:15:37 Patient Height : 64 inches 12:15:41 Patient Weight : 136 lbs 12:16:01 Patient allergic to No known allergies 12:22:15 Diagnostic Cath Status : Elective 12:22:29 Procedure Status Elective Heart Cath (OP). 12:22:31 Time tracking: Regular hours (M-F 7:00 - 5:00) 12:22:35 Plan of Care:Hemodynamics will remain stable., Cardiac rhythm will remain stable., Comfort level will be maintained., Respiratory function will remain adequate., Patient/ family verbilizes understanding of procedure., Procedure tolerated without complication., Recovers from procedure without complications.. 12:22:43 H&P Date Dictated: 09/30/2020 Within 30 days and on chart.. 12:22:44 Pre-procedure instructions explained to patient. 12:22:45 Pre-op teaching completed and patient verbalized understanding. 12:22:47 Family in waiting room. 12:22:49 Patient NPO since Midnight. 12:23:34 Stress Test: yes; N/A TEST ABORTED DUE TO DIZZINESS, AND FATIGUE 12:26:27 Indication : Dyspnea 12:26:33 Indication : Chest pain 12:26:40 Indication : Pulmonary hypertension 12:49:29 Lab Result : Hemoglobin 11.2 g/dl 12:49:29 Lab Result : Hematocrit 36 % 13:00:50 Lab Result : Creatinine 0.9 mg/dl 13:00:50 Lab Result : BUN 13 mg/dl 13:16:31 Yissel Greco RT(R) sent for patient. Start room use. 13:17:45 Risk of Mortality: 0.1 13:17:48 Risk of blood transfusion: 5.7 13:17:51 Risk of SUJEY: 0.4 13:17:53 Alarms reviewed by R. N. 13:17:54 Sharps counted by scrub and verified by R.N. 13:21:58 Patient received from Pre/Post Procedure Room to CCL 1 Alert and oriented. Tansferred to table in Supine position. 13:22:00 Warm blankets applied, and chloe hugger turned on for patient comfort. 13:22:00 Correct patient and procedure confirmed by team. 13:22:02 ECG and BP/O2 sat monitors applied to patient. 13:22:07 Is the patient allergic to Iodine/contrast media? No. 13:22:09 Was the patient premedicated? Yes 13:22:10 Is patient on blood thinner?No 13:22:12 Patient diabetic? No. 13:22:14 If diabetic: On Metformin? N/A 13:22:51 Oxygen 2 l/min etCO2 Nasal cannula was administered by Ludwig Snider RN; used for procedure; Verbal order read back and verified. 13:22:59 Lidocaine 2% 20ml vial added to field was administered by Michoacano Majano MD; for local anesthetic; Verbal order read back and verified. 13:23:06 Heparin Flush Bag (1000units/500ml NS) 2 bags added to field was administered by Michoacano Majano MD; used for procedure; Verbal order read back and verified. 13:23:15 0.9% NaCl 100 ml/hr I.V. was administered by Ludwig Snider RN; Per physician; Verbal order read back and verified. 13:28:37 Patient not . Patient has had hysterectomy. 13:28:38 ----Pre-sedation anethsthesia assessment.---- 13:28:41 Previous problem with sedation/anesthesia? No ? 13:28:42 Snore? Yes 13:28:44 Sleep apnea? Unknown 13:28:45 Deviated septum? No 13:28:46 Opens mouth fully? Yes 13:28:47 Sticks out tongue? Yes 13:28:49 Airway obstruction? No ? 13:28:51 Dentures? No ? 13:28:55 Pre procedure: right dorsailis pedis pulse 1+ Palpable, but thready & weak; easily obliterated 13:28:59 Modified Paulo's test Ulnar > 7 seconds. 13:29:01 Patient pain scale 0/10 ?. 13:29:05 IV patent on arrival in left antecubital with 0.9% NaCl at KVO. 13:29:10 Right groin area was prepped with chlora-prep and draped in sterile fashion 13:29:13 Use device set Femoral Dx 13:29:15 ACIST Syringe (53087) opened to sterile field. 13:29:15 Bag Decanter (2002S) opened to sterile field. 13:29:16 Medline Cath Pack ([id number]) opened to sterile field. 13:29:17 ACIST Hand Control (08484) opened to sterile field. 13:29:17 ACIST Manifold (42525) opened to sterile field. 13:29:18 DIAGNOSTIC Multipack 5Fr catheter set ([id number]) opened to sterile field. 13:29:19 SHEATH 5FR [place] (JCT547) opened to sterile field. 13:29:20 EMERALD Guide Wire (145-421) opened to sterile field. 13:29:22 Tegaderm 4 x 4 (1626W) opened to sterile field. 13:29:34 Vital chart was started 13:29:35 Full Disclosure recording started 13:29:37 Baseline sample Acquired. 13:29:39 Rhythm: sinus rhythm 13:31:37 2) 60-89 Mildly reduced kidney function, and other findings (as for stage 1) point to kidney disease. 13:31:40 Maximum allowable contrast dose (3.7 X eGFR X 0.75)236 ml. 13:33:38 Lab Result : eGFR AM 85.74263 ml/min 13:36:04 --------ALL STOP TIME OUT------ 13:36:05 Final Timeout: patient, procedure, and site verified with staff and physician. All members of the team are in agreement. 13:36:07 Right groin site verified by team. 13:36:10 Fire Safety Assessment: A--An alcohol-based skin anteseptic being used preoperatively., C--Open oxygen or nitrous oxide is being used., D--An ESU, laser, or fiber-optic light is being used. 13:36:14 Physical assessment completed. ASA score P 2 - A patient with mild systemic disease as per Michoacano Melecio MD. 13:36:19 Sedation plan: IV Moderate Sedation Medication:Versed, Fentanyl 13:37:40 Versed 2 mg I.V. was administered by Ludwig Snider RN; for sedation; Verbal order read back and verified. 13:37:45 Fentanyl 100 mcg I.V. was administered by Ludwig Snider RN; for sedation; Verbal order read back and verified. 13:40:13 Procedure started. 13:41:01 Versed 2 mg I.V. was administered by Ludwig Snider RN; for sedation; Verbal order read back and verified. 13:41:03 Local anesthetic to right femoral artery with Lidocaine 2% by Michoacano Majano MD.INITIAL ACCESS ONLY 13:41:05 Fentanyl 100 mcg I.V. was administered by Ludwig Snider RN; for sedation; Verbal order read back and verified. 13:42:52 A 5 Fr sheath was inserted into the Right Femoral artery 13:42:59 A MULTIPACK JL 4.0 5Fr catheter was advanced over the wire and used for Procedure. 13:43:28 LCA angiography performed. 13:43:30 Injector settings: Ml/sec: 3, Volume: 6, 13:45:00 Catheter removed. 13:45:01 Lopressor 5 mg I.V. was administered by Ludwig Snider RN; Per physician; Verbal order read back and verified. 13:45:09 A MULTIPACK 3DRC 5Fr catheter was advanced over the wire and used for Procedure. 13:45:51 ACCDominant side:Co-Dominant 13:45:56 RCA angiography performed. 13:45:58 Injector settings: Ml/sec: 3, Volume: 6, 13:46:01 Catheter removed. 13:46:09 A MULTIPACK Pigtail 5 Fr catheter was advanced over the wire and used for Procedure. 13:46:53 Injector settings: Ml/sec: 5, Volume: 15, 13:47:04 LV hemodynamics recorded. 13:47:10 EF : 55 % 13:47:22 Versed 1 mg I.V. was administered by Ludwig Snider RN; for sedation; Verbal order read back and verified. 13:47:24 Catheter removed. 13:47:26 Fentanyl 50 mcg I.V. was administered by Ludwig Snider RN; for sedation; Verbal order read back and verified. 13:47:27 EXOSEAL 5Fr (EX500) opened to sterile field. 13:47:38 Sheath removed intact; hemostasis achieved with Exoseal to the Right Femoral artery. 13:47:44 Fluoroscopy time 00.80 minutes. 13:47:49 Fluoroscopy dose: 191 mGy 13:47:49 Flurop Dose total: 191 13:47:55 Dose Area Product 9060 mGy/cm. 13:47:58 Contrast amount:Isovue 370 49ml. 13:48:02 Maximum allowable dose exceeded? No. 13:48:03 Sharps counted by scrub and verified by R.N. 13:48:37 Post-op/insertion site Right Femoral artery dressed using a 4 x 4 and Tegaderm. 13:48:53 Post right femoral artery:stable, soft, clean and dry 13:48:55 Post Procedure Pulses reassessed and unchanged 13:48:57 Post procedure: right dorsailis pedis pulse 1+ Palpable, but thready & weak; easily obliterated. 13:49:00 Procedure ended.(Physican Out) 13:49:00 Post-procedure physical assessment completed. ASA score P 2 - A patient with mild systemic disease as per Michoacano Majano MD. 13:49:03 Post procedure rhythm: unchanged. 13:49:06 Estimated blood loss: 5 ml 13:49:07 Post procedure instruction explained to patient.Patient verbalizes understanding. 13:49:08 Patient needs reinforcement of post procedure teaching. 13:49:38 Procedure type changed to Cath procedure, Diagnostic procedure, LHC, [facility] w/Coronaries, Sedation Charges, Moderate Sedation 10-24 minutes 13:49:52 Procedure and supply charges have been captured, reviewed, submitted and are correct. 13:49:56 Procedure Complication : No complications 13:50:00 [facility] Findings: mild to moderate CAD (<70%) 13:50:03 Operative report dictated upon procedure completion. 13:50:04 See physician's report for complete and final results. 13:50:08 Report given to Pre/Post Procedure Room. 13:50:11 Patient transfered to Pre/Post Procedure Room with Stretcher. 13:50:16 Procedure ended. 13:50:16 Full Disclosure recording stopped 13:50:20 End room use (Document Last) 13:50:41 End room use (Document Last) 13:50:56 End room use (Document Last) 13:52:21 Lopressor 5 mg I.V. was administered by Ludwig Snider RN; Per physician; Verbal order read back and verified. 13:56:33 Vital chart was stopped Device Usage Item Name Manufacture Quantity Catalog Hospital Part Current Minimal L ot# / Number Charge Number Stock Stock Serial# Code ACIST Acist 1 [id number] 726870 533981 [id number] 20 Syringe Medical (78764) Systems Inc Bag Microtek 1 2001S 352878 73159 926746 5 Decanter Medical Inc. () Medline Medline 1 [id number] 706990 71408 594069 5 Cath Pack ([id number]) ACIST Hand Acist 1 53559 912772 025246 531962 5 Control Medical (31390) Systems Inc ACIST Acist 1 84330 293812 457976 366711 5 Manifold Medical (37280) Systems Inc DIAGNOSTIC Cardinal 1 EA5335 002279 09315 976980 30 Multipack Health 5Fr catheter set (SP8498) SHEATH 5FR Terumo 1 ZOM187 748711 298600 879867 5 [place] (SND703) EMERALD Cardinal 1 502-455 631289 557799 680079 5 Guide Wire Health (502-455) Tegaderm 4 3M 1 1626W 548775 439166 268884 5 x 4 (1626W) MULTIPACK Cardinal 1 331062 5 JL 4.0 5Fr Health catheter MULTIPACK Cardinal 1 821574 5 3DRC 5Fr Health catheter MULTIPACK Cardinal 1 089573 5 Pigtail 5 Health Fr catheter EXOSEAL 5Fr Cardinal 1 EX500 893516 927258 110998 10 (EX500) Health Signature Audit Rufe Stage Time Signature Unsigned Intra-Procedure 10/05/2020 Jessica Bui 1:50:41 PM RT(R) Intra-Procedure 10/05/2020 Ludwig Snider RN 1:50:56 PM Intra-Procedure 10/05/2020 Michoacano Hyman 1:56:31 PM Sumit [facility] [address] [place] [address]
[~2020-10-05 11:57] MED LIST changes: +CIPRO500 MG PO; +FLAGYL500 MG PO; +ZOFRAN8 MG PO
[2020-10-05] MEDS ORDERED: PHENERGAN25 M1 PO (12:19)
[2020-10-05] MEDS ORDERED: ARISTOCORT 0.5%15 GM TOPICAL (12:20)
[2020-10-05] MEDS ORDERED: EDARBI40 MG PO (12:20)
[2020-10-05] MEDS ORDERED: BREZTRI (12:21)
[2020-10-05] MEDS ORDERED: NYSTATIN15 GM TOPICAL (12:23)
[2020-10-05 12:41] LABS: BASOPHILS 0.3 % (0-2); EOSINOPHILS 0.8 % (0-7); HEMOGLOBIN 11.2 g/dL (12-16); IMMATURE GRANULOCYTES 0.5 % (0-5); LYMPHOCYTES 44.9 % (15-50); MCH 26.5 pg (26.0-34.0); MCHC 31.1 g/dL (31.0-37.0); MCV 85.3 fL (80.0-100.0); MEAN PLATELET VOLUME 8.7 fL (7.4-10.4); MONOCYTES 4.2 % (2-11); NEUTROPHIL ABS# 5.82 10x3/uL (1.56-6.13); NEUTROPHILS 49.3 % (40-80); PLATELET COUNT 357 10x3/uL (130-400); RBC 4.22 10x6/uL (4.00-5.40); RDW 22.1 % (11.5-14.5); WBC 11.8 10x3/uL (4.8-10.8)
[2020-10-05 12:42] VITALS: BP 186/113; Ht 162.6 cm; Wt 62.8 kg
[2020-10-05 12:56] LABS: CALCIUM 9.1 mg/dL (8.5-10.1); CARBON DIOXIDE 29.6 mmol/L (21.0-32.0); CHOL - HDL RATIO 4.7 ratio (2.3-4.1); CREATININE - SERUM 0.9 mg/dL (0.6-1.3); LDL-HDL RATIO 2.3 ratio (1.5-3.5); POTASSIUM - SERUM 3.6 mmol/L (3.5-5.1)
--- NOTE | 2020-10-05 14:00 | NUR ---
ARRIVES TO ROOM VIA STRETCHER FROM LEFT HEART CATH. PT PLACED ON MONITORS WITH ALARMS ON , IV INFUSING PER ORDERS, PLAN OF CARE GIVEN TO PT , SEE BOAT DETAILER , CALL LIGHT WITH IN REACH
--- NOTE | 2020-10-05 14:15 | NUR ---
RESTING QUIETLY , AROUSES EASILY TO VERBAL, VSS , SR WITH NO ECTOPY, SATS 95% RA, RIGHT GROIN SOFT WITH NO OOZING OR BLEEDING NOTED, NO PALPABLE HEMATOMA, EXTREMITY PINK AND WARM WITH PEDAL PULSE PALPABLE, DENIES PAIN OR NEEDS AT PRESENT, NO BATHROOM NEEDS, IV INFUSING PER ORDERS, CALL LIGHT WITHIN REACH
--- NOTE | 2020-10-05 14:51 | NUR ---
DR WESTON AT BEDSIDE TO REVIEW RESULT WITH PT , NEW ORDERS RECIEVED.
[2020-10-05] MEDS ORDERED: HYDROCHLOROTH12.5 M1 PO ×2 (14:53→14:58)
--- NOTE | 2020-10-05 15:05 | NUR ---
RESTING QUIETLY AROUSES EASILY , VSS, SR, RIGHT GROIN SOFT WITH NO OOZING OR BLEEDING , NO PALPABLE HEMATOMA , PEDAL PULSE PALPABLE, DENIES PAIN OR NEEDS, IV INFUSING PER ORDERS , CALL LIGHT WITHIN REACH
--- NOTE | 2020-10-05 15:30 | NUR ---
PT PLACED IN SEMI FOWLERS POSITION, SANDWICH AND PO FLUIDS SERVED, VSS, SR, RIGHT GROIN SOFT NO OOZING OR BLEEDING NOTED, RIGHT LOWER EXTREMITY PINK AND WARM AND PEDAL PULSE PALPABLE, PT DENIES PAIN OR NEEDS, IV INFUSING PER ORDERS, CALL LIGHT WITHIN REACH, QUESTIONS AND CONCERNS ADDRESSED
--- NOTE | 2020-10-05 16:00 | NUR ---
ASSISTED UP TO BEDSIDE TO DRESS , PT AMBULATES TO BATHROOM WITH OUT DIFFICULTY VOIDS WITH OUT DIFFICULTY, RIGHT GROIM REMAINS SOFT WITH NO BLEEDING OR OOZING, NO PALPABLE HEMATOMA PEDAL PULSE PALPABLE EXTREMITY PINK AND WARM. DISCHARGE TEACHING,
--- NOTE | 2020-10-05 16:30 | NUR ---
IV REMOVED PER ORDERS CATHETER INTACT 2X2 DRESSING PLACED , VSS, SR, RIGHT GROIN SOFT NO OOZING OR BLEEDING NOTED, PEDAL PULSE PALPABLE, DENIES PAIN OR NEEDS, DISCHARGE INSTRUCTIONS REVIEWED PT VERBALIZED UNDERSTANDING, QUESTIONS AND CONCERNS ADDRESSED, TAKEN TO PRIVATE VEHICLE VIA WHEELCHAIR
--- NOTE | 2020-10-06 16:12 | OP ---
PATIENT NAME: ERICA VARMA MEDICAL RECORD: [id number] :70 LOCATION:D[facility] ADMISSION DATE: SURGEON: ISAIAS WESTON MD DATE OF OPERATION: 10/05/2020 PROCEDURE: Left heart catheterization, selective coronary angiography, right femoral artery approach. CATHETERS: A 5-Filipino sheath, 5/4 left and right Abby, 5/4 pig. The procedure was well tolerated. The patient was returned to the iyer. Sheath removed. ExoSeal device placed. FINDINGS: Left ventriculography in 30-degree CARO view: Normal wall motion and normal systolic function. CORONARY ANATOMY: Left main: Left main is free of disease. LAD: Free of disease in the diagonal system. Circumflex: Free of disease in the marginal system. Right coronary artery: Dominant artery, gives rise to PDA, free of disease. IMPRESSION: Normal left ventricular systolic function. Normal coronary anatomy. TRANSINT:[id number] Voice Confirmation ID: [id number] DOCUMENT ID: [id number] ISAIAS WESTON MD at 1612 CC: [id number] DICTATION DATE: 10/05/20 1358 HOUSETRAILER SERVICER: 10/05/20 1800 [facility] 10/05/20 [id number] [place] [address]
== END 2020-10-05 16:30 | disposition home or self-care (01) ==
LOC: D.CATH 11:57
PROVIDERS: ATTEND Internal Medicine Interventional Cardiology
DX: I20.9 Angina pectoris, unspecified (principal); I10 Essential (primary) hypertension; R06.00 Dyspnea, unspecified; R07.9 Chest pain, unspecified

== ENCOUNTER → 2020-12-07 11:10 | Outpatient (CLI) | payer OTHER ==
[2020-10-05 12:42] VITALS: BMI 23.7
[~2020-12-07 11:10] MED LIST changes: +ARISTOCORT 0.5%15 GM TOPICAL; +BREZTRI; +EDARBI40 MG PO; +HYDROCHLOROTH12.5 M1 PO; +NYSTATIN15 GM TOPICAL; +PERCOCET 10-321 EAC1 PO; +[UNRECOGNIZED DRUG - OTHER] INH
== END | disposition home or self-care (01) ==
LOC: D.NM 11-29 14:30
PROVIDERS: ATTEND Internal Medicine Gastroenterology
DX: R10.84 Generalized abdominal pain (principal); R11.0 Nausea